=== PATIENT | female | born 1960 | race Caucasian/White ===

== ENCOUNTER 2023-07-03 12:00 | Inpatient (IN) | payer OTHER ==
[2023-07-03 12:47] VITALS: BMI 29.7
[2023-07-03] MEDS ORDERED: LOPERAMIDE HCL 2 MG CAPSULE PO PRN (13:39)
[2023-07-03] MEDS ORDERED: NALOXONE HCL (KLOXXADO) 8 MG SPRAY NS PRN (13:39)
[2023-07-03] MEDS ORDERED: NALOXONE HCL 0.4 MG/ML VIAL IM PRN (13:39)
[2023-07-03] MEDS ORDERED: POLYETHYLENE GLYCOL (HEALTHYLAX) 3350 17 GM PACKET PO PRN (13:39)
[2023-07-03] MEDS ORDERED: IBUPROFEN 400 MG TABLET (FP) PO PRN (13:39)
[2023-07-03] MEDS ORDERED: NICOTINE POLACRILEX 2 MG GUM BUC PRN (13:39)
[2023-07-03] MEDS ORDERED: BENZOCAINE/MENTHOL (CHLORASEPTIC ) LOZENGE MM PRN (13:39)
[2023-07-03] MEDS ORDERED: BISMUTH SUBSALICYLATE 524 MG/30 ML PO PRN (13:39)
[2023-07-03] MEDS ORDERED: MAG HYDROX/AL HYDROX/SIMETH 30 ML UNIT-DOSE CUP PO PRN (13:39)
[2023-07-03] MEDS ORDERED: BENZONATATE 200 MG CAPSULE PO PRN (13:39)
[2023-07-03] MEDS ORDERED: guaiFENesin 600 MG TABLET.ER (FP) PO PRN (13:39)
[2023-07-03] MEDS ORDERED: ONDANSETRON *ODT* 4 MG TABLET SL PRN (13:39)
[2023-07-03] MEDS ORDERED: MAGNESIUM HYDROX 2400MG/30ML ORAL SUSPENSION 30 ML CUP PO PRN (13:39)
[2023-07-03] MEDS ORDERED: chlordiazePOXIDE HCL 25 MG CAPSULE PO PRN (13:43)
[2023-07-03] MEDS: cloNIDine HCL 0.1 MG TABLET PO ONE (14:17)
[2023-07-03] MEDS: hydrOXYzine PAMOATE 25 MG CAPSULE (FP) PO PRN (14:17)
[2023-07-03] MEDS ORDERED: hydrOXYzine PAMOATE 25 MG CAPSULE (FP) PO ONE (14:19)
[2023-07-03] MEDS ORDERED: cloNIDine HCL 0.1 MG TABLET ONE (14:19)
[2023-07-03] MEDS: chlordiazePOXIDE HCL 25 MG CAPSULE PO SCH (16:35)
[2023-07-03] MEDS: THIAMINE HCL 100 MG TABLET (FP) PO SCH (22:46)
[2023-07-03] MEDS: MELATONIN 5 MG TABLETS PO SCH (22:46)
[2023-07-04] MEDS: ACETAMINOPHEN 325 MG TABLET (FP) PO PRN (06:56)
[2023-07-04] MEDS: cloNIDine HCL 0.1 MG TABLET PO ONE (06:56)
[2023-07-04] MEDS: PRENATAL VITAMINS W/ FOLIC ACID TABLET (FP) PO SCH (10:25)
[2023-07-04] MEDS: NICOTINE 14 MG/24 HOURS TOPICAL PATCH TD SCH (10:29)
[2023-07-04 11:11] LABS: HEMATOCRIT 36.5 % (32.4-45.2); HEMOGLOBIN 12.1 GM/dL (10.7-15.3); MCH 35.2 pg (25.7-33.7); MCHC 33.1 g/dl (32.0-36.0); MEAN CELL VOLUME 106.4 fl (80-96); MEAN PLT VOLUME 7.6 fl (7.5-11.1); PLATELET COUNT 95 10^3/uL (134-434); RBC 3.43 M/mm3 (3.60-5.2); RDW 15.6 % (11.6-15.6)
[2023-07-04] MEDS: PATIENT'S OWN MEDICATION (NON-FORMULARY) (Losartan/Hydrochlorothiazide [Losartan-Hctz 100- PO SCH (11:50)
[2023-07-04] MEDS: METOPROLOL TARTRATE 50 MG TABLET (FP) PO SCH (11:56)
[2023-07-04 12:17] LABS: CHLORIDE 107 mmol/L (98-107); POTASSIUM 3.5 mmol/L (3.5-5.1); SODIUM 142 mmol/L (136-145)
[2023-07-04 12:23] LABS: ANION GAP 8 mmol/L (4-13); BLOOD UREA NITROGEN 11.4 mg/dL (7-18); CALCIUM 9.1 mg/dL (8.5-10.1); CO2 27 mmol/L (21-32)
[2023-07-04 12:24] LABS: ALBUMIN 3.3 g/dl (3.4-5.0); GLUCOSE,RANDOM 111 mg/dL (74-106)
[2023-07-04 12:25] LABS: SGPT/ALT 41 U/L (13-61)
[2023-07-04 12:27] LABS: CREATININE 0.6 mg/dL (0.55-1.3); SGOT/AST 73 U/L (15-37); TOT PROT 6.8 g/dl (6.4-8.2)
[2023-07-04 12:28] LABS: ALK PHOS 93 U/L (45-117)
[2023-07-04] MEDS: IBUPROFEN 600 MG TABLET (FP) PO PRN (22:38)
[2023-07-05] MEDS: chlordiazePOXIDE HCL 25 MG CAPSULE PO SCH (05:49)
[2023-07-05] MEDS ORDERED: LOSARTAN POTASSIUM 50 MG TABLET PO SCH (10:00)
[2023-07-05] MEDS: HYDROCHLOROTHIAZIDE 12.5 MG CAPSULE (FP) PO SCH (10:13)
[2023-07-05] MEDS: LOSARTAN POTASSIUM 50 MG TABLET PO SCH (10:13)
[2023-07-06] MEDS ORDERED: chlordiazePOXIDE HCL 10 MG CAPSULE PO PRN
[2023-07-06] MEDS: chlordiazePOXIDE HCL 10 MG CAPSULE PO SCH (05:59)
[2023-07-06] MEDS ORDERED: MELATONIN 5 MG TABLETS PO PRN (09:44)
[2023-07-06] MEDS: chlordiazePOXIDE 5 MG CAPSULE PO SCH (11:12)
[2023-07-06] MEDS: LIDOCAINE 5% TOPICAL PATCH TP SCH (14:42)
[2023-07-06 20:33] VITALS: TEMP 97.3
[2023-07-06 21:12] VITALS: BP 137/98; PULSE 77; RESP 16
[2023-07-06] MEDS: LIDOCAINE PATCH REMOVAL MC SCH (22:16)
[2023-07-07] MEDS ORDERED: chlordiazePOXIDE HCL 10 MG CAPSULE PO SCH ×2 (02:35→05:00)
[2023-07-07] MEDS ORDERED: THIAMINE HCL 200 MG/2 ML VIAL IVPB SCH (02:40)
[2023-07-07] MEDS ORDERED: FOLIC ACID 1 MG TABLET (FP) PO SCH (02:40)
[2023-07-07] MEDS ORDERED: chlordiazePOXIDE 5 MG CAPSULE PO SCH (05:00)
[2023-07-07] MEDS ORDERED: chlordiazePOXIDE HCL 10 MG CAPSULE PO PRN (05:30)
[2023-07-08] MEDS ORDERED: chlordiazePOXIDE HCL 10 MG CAPSULE PO SCH (02:37)
[2023-07-08] MEDS ORDERED: chlordiazePOXIDE HCL 10 MG CAPSULE PO ONE (05:00)
[2023-07-08] MEDS ORDERED: chlordiazePOXIDE 5 MG CAPSULE PO ONE (05:00)
[2023-07-09] MEDS ORDERED: chlordiazePOXIDE HCL 10 MG CAPSULE PO ONE (05:00)
== END 2023-07-06 23:55 | disposition short-term general hospital (02) | DRG 775 ==
LOC: YASAS 12:00 → Y3N 15:04 → Y6N 15:35
PROVIDERS: ADMIT Allergy & Immunology; ATTEND Surgery
PROC: HZ2ZZZZ Detoxification Services for Substance Abuse Treatment (ICD-10-PCS; principal; 2023-07-03)
DX: F10.230 Alcohol dependence with withdrawal, uncomplicated (principal); F17.210 Nicotine dependence, cigarettes, uncomplicated; F10.24 Alcohol dependence with alcohol-induced mood disorder; G47.00 Insomnia, unspecified; I10 Essential (primary) hypertension; M54.50 Low back pain, unspecified; G89.29 Other chronic pain; R26.2 Difficulty in walking, not elsewhere classified; R42 Dizziness and giddiness; R29.6 Repeated falls; Z99.89 Dependence on other enabling machines and devices; Z88.0 Allergy status to penicillin; Z88.8 Allergy status to other drugs, medicaments and biological substances
CPT/HCPCS: 36415; 73562-TC-RT-FY; 80053; 80305; 80307; 82140; 85027; 86780; 87635; 93005; 93010

== ENCOUNTER 2023-07-06 21:12 | Observation (INO) | payer OTHER ==
[2023-07-06 22:53] LABS: EOS % 4.5 % (0-4.5); HEMATOCRIT 40.2 % (32.4-45.2); HEMOGLOBIN 13.7 GM/dL (10.7-15.3); LYMPH % 24.7 % (8-40); MCH 35.7 pg (25.7-33.7); MCHC 34.1 g/dl (32.0-36.0); MEAN CELL VOLUME 104.8 fl (80-96); MEAN PLT VOLUME 7.5 fl (7.5-11.1); MONO % 25.3 % (3.8-10.2); NEUT % 44.5 % (42.8-82.8); PLATELET COUNT 140 10^3/uL (134-434); RBC 3.83 M/mm3 (3.60-5.2); RDW 15.7 % (11.6-15.6); WHITE BLOOD COUNT 2.8 K/mm3 (4.0-10.0)
[2023-07-06 23:13] LABS: POTASSIUM 3.7 mmol/L (3.5-5.1)
[2023-07-06 23:15] LABS: CALCIUM 10.4 mg/dL (8.5-10.1); MAGNESIUM 2.1 mg/dL (1.8-2.4)
[2023-07-06 23:16] LABS: ALBUMIN 3.8 g/dl (3.4-5.0)
[2023-07-06 23:18] LABS: CREATININE 0.8 mg/dL (0.55-1.3); PHOSPHOROUS 4.5 mg/dL (2.5-4.9)
[2023-07-06 23:20] LABS: BILIRUBIN,TOTAL 0.6 mg/dL (0.2-1); TOT PROT 7.8 g/dl (6.4-8.2)
[2023-07-06 23:34] LABS: ANISOCYTOSIS 1+; MACROCYTOSIS 1+
[2023-07-06] MEDS: SODIUM CHLORIDE 0.9% 500 ML INFUS.BAG IV ONE (23:47)
[2023-07-07] MEDS ORDERED: THIAMINE HCL 200 MG/2 ML VIAL ONE (03:01)
[2023-07-07] MEDS: chlordiazePOXIDE HCL 25 MG CAPSULE PO ONE (03:23)
[2023-07-07] MEDS: THIAMINE HCL 200 MG/2 ML VIAL IVPB SCH ×3 (03:23→10:11)
[2023-07-07] MEDS: LACTATED RINGERS SOLUTION 1,000 ML/1,000 ML INFUS.BAG IV SCH (03:23)
[2023-07-07] MEDS: FOLIC ACID 1 MG TABLET (FP) PO SCH (03:23)
[2023-07-07 05:23] VITALS: BMI 30.7
[2023-07-07] MEDS: chlordiazePOXIDE HCL 25 MG CAPSULE PO SCH (06:23)
[2023-07-07 07:50] VITALS: RESP 18
[2023-07-07 08:47] LABS: HEMATOCRIT 38.6 % (32.4-45.2); HEMOGLOBIN 12.7 GM/dL (10.7-15.3); MCHC 32.8 g/dl (32.0-36.0); MEAN CELL VOLUME 106.6 fl (80-96); MEAN PLT VOLUME 7.5 fl (7.5-11.1); PLATELET COUNT 139 10^3/uL (134-434); RBC 3.62 M/mm3 (3.60-5.2); RDW 15.6 % (11.6-15.6); WHITE BLOOD COUNT 3.2 K/mm3 (4.0-10.0)
[2023-07-07] MEDS: LOSARTAN POTASSIUM 50 MG TABLET PO SCH (10:07)
[2023-07-07 10:11] LABS: POTASSIUM 3.2 mmol/L (3.5-5.1)
[2023-07-07 10:23] LABS: ALBUMIN 3.4 g/dl (3.4-5.0)
[2023-07-07 10:26] LABS: BILIRUBIN,DIRECT 0.2 mg/dL (0.0-0.2); CREATININE 0.6 mg/dL (0.55-1.3)
[2023-07-07 10:28] LABS: BILIRUBIN,TOTAL 0.6 mg/dL (0.2-1); TOT PROT 6.9 g/dl (6.4-8.2)
[2023-07-07] MEDS ORDERED: LACTULOSE 20 GM/30 ML UDC (FOR ORAL USE ONLY) PO PRN (10:29)
[2023-07-07 10:44] LABS: BLOOD UREA NITROGEN 13.8 mg/dL (7-18)
[2023-07-07 11:02] LABS: ANISOCYTOSIS 1+; MACROCYTOSIS 1+
[2023-07-07 11:05] LABS: CALCIUM 8.8 mg/dL (8.5-10.1)
[2023-07-07] MEDS: POTASSIUM CHLORIDE TABS 20 MEQ TABLET.ER (FP) PO SCH (11:55)
[2023-07-07] MEDS: LACTULOSE 20 GM/30 ML UDC (FOR ORAL USE ONLY) PO SCH (13:52)
[2023-07-07] MEDS: LORazepam 2 MG/ML SDV VIAL IVPUSH PRN (14:31)
[2023-07-07 14:44] LABS: URINE APPEARANCE CLEAR; URINE BILIRUBIN NEGATIVE (NEGATIVE); URINE COLOR YELLOW; URINE GLUCOSE (UA) NEGATIVE (NEGATIVE); URINE KETONE NEGATIVE (NEGATIVE); URINE LEUK ESTERASE NEGATIVE (NEGATIVE); URINE NITRITE NEGATIVE (NEGATIVE); URINE PROTEIN NEGATIVE (NEGATIVE)
[2023-07-07] MEDS: LORazepam 2 MG/ML SDV VIAL IVPUSH ONE (15:46)
[2023-07-08 08:00] LABS: EOS % 4.8 % (0-4.5); HEMOGLOBIN 12.6 GM/dL (10.7-15.3); LYMPH % 23.8 % (8-40); MCH 35.3 pg (25.7-33.7); MCHC 33.3 g/dl (32.0-36.0); MEAN CELL VOLUME 105.8 fl (80-96); MEAN PLT VOLUME 7.6 fl (7.5-11.1); MONO % 24.9 % (3.8-10.2); NEUT % 44.5 % (42.8-82.8); PLATELET COUNT 159 10^3/uL (134-434); RBC 3.59 M/mm3 (3.60-5.2); RDW 14.9 % (11.6-15.6); WHITE BLOOD COUNT 3.8 K/mm3 (4.0-10.0)
[2023-07-08 08:22] LABS: POTASSIUM 3.7 mmol/L (3.5-5.1)
[2023-07-08 08:28] LABS: CALCIUM 9.1 mg/dL (8.5-10.1)
[2023-07-08 08:29] LABS: ALBUMIN 3.3 g/dl (3.4-5.0); BLOOD UREA NITROGEN 5.9 mg/dL (7-18); MAGNESIUM 1.8 mg/dL (1.8-2.4)
[2023-07-08 08:30] LABS: CREATININE 0.6 mg/dL (0.55-1.3)
[2023-07-08 08:31] LABS: BILIRUBIN,TOTAL 0.8 mg/dL (0.2-1); TOT PROT 6.5 g/dl (6.4-8.2)
[2023-07-08 08:50] LABS: ANISOCYTOSIS 0; MACROCYTOSIS 1+
[2023-07-08 09:44] VITALS: PULSE 73
[2023-07-08] MEDS: chlordiazePOXIDE HCL 10 MG CAPSULE PO SCH (12:00)
[2023-07-08] MEDS: THIAMINE HCL 100 MG TABLET (FP) PO SCH (12:47)
[2023-07-08 13:27] VITALS: BP 142/107; TEMP 98.2
[2023-07-08 15:52] LABS: HIV INTERPRETATION NEGATIVE (NEGATIVE)
[2023-07-09] MEDS ORDERED: chlordiazePOXIDE HCL 10 MG CAPSULE PO SCH (11:00)
[2023-07-10] MEDS ORDERED: chlordiazePOXIDE HCL 10 MG CAPSULE PO ONE (05:00)
[2023-07-10] MEDS ORDERED: THIAMINE HCL 200 MG/2 ML VIAL IVPB SCH (10:00)
[2023-07-11] MEDS ORDERED: chlordiazePOXIDE HCL 10 MG CAPSULE PO PRN
== END 2023-07-08 14:16 | disposition other institution (70) ==
LOC: JER 21:12 → JERBED 23:58 → J8W 07-07 04:03
PROVIDERS: ADMIT Internal Medicine; ATTEND Nurse Practitioner Acute Care
PROC: 3E033NZ Introduction of Analgesics, Hypnotics, Sedatives into Peripheral Vein, Percutaneous Approach (ICD-10-PCS; principal; 2023-07-06)
DX: S09.90XA Unspecified injury of head, initial encounter (principal); W18.39XA Other fall on same level, initial encounter; Y93.89 Activity, other specified; F10.939 Alcohol use, unspecified with withdrawal, unspecified; Y92.239 Unspecified place in hospital as the place of occurrence of the external cause; R29.6 Repeated falls; Z98.84 Bariatric surgery status; Z29.89 Encounter for other specified prophylactic measures; F19.20 Other psychoactive substance dependence, uncomplicated; I10 Essential (primary) hypertension; Z90.79 Acquired absence of other genital organ(s); Z88.8 Allergy status to other drugs, medicaments and biological substances
CPT/HCPCS: 0241U-QW; 36415; 70450-TC; 71045-TC-FY; 72131-TC; 74176-TC; 80048; 80053; 80076; 81003; 82140; 82607; 82746; 83605; 83735; 84100; 84484; 85025; 87086; 87389; 93005; 93010; 96374; 96376; 97116-GP; 97161-GP; 99285-25; G0378